=== PATIENT | male | born 1960 | race African-American/Black ===

== ENCOUNTER 2019-08-10 05:34 | Emergency (ER) | payer OTHER ==
[~2019-08-10] VITALS: Ht 200.7 cm; Wt 127.0 kg
[~2019-08-10 05:34] MED LIST: ASPIR 8181 MG PO; CATAPRES0.2 MG PO; DILAUDID4 MG PO; DOLOPHINE HCL10 MG PO; DULOXETINE HCL60 MG PO; FLOMAX0.4 MG; FLONASE 0.05%50 MCG NASAL; FLOVENT HFA 1110 MCG; GLUCOPHAGE1000 MG; GLYBURIDE 2.52.5 MG PO; KEFLEX500 MG PO; LIPITOR10 MG; LIPITOR40 MG PO; MEDROLDOSEPACK PO; NORCO 5-325 TA1 EACH PO; OXYCODONE HCL 55 MG PO; PRINIVIL20 MG PO; TRAMADOL 50 MG50 MG PO
[2019-08-10 06:21] LABS: ABSOLUTE NEUTROPHILS 4.4 thou/uL (1.4-8.2); BASOPHILS 1.1 % (0.0-2.0); HEMOGLOBIN 13.3 gm/dL (14.0-18.0); LYMPHOCYTES 29.4 % (24.0-44.0); MCH 28.5 pg (26.0-34.0); MCHC 33.4 g/dL (28.0-37.0); MCV 85.6 fL (80.0-100.0); MONOCYTES 8.3 % (1.0-8.0); PLATELET COUNT 223 thou/uL (150-400); POLYS 60.2 % (36.0-66.0); RBC 4.67 mil/uL (4.50-6.00); RDW 15.1 % (10.5-14.5); WBC 7.3 thou/uL (4.0-11.0)
[2019-08-10 06:28] LABS: ANION GAP 9 mmol/L (7-16); BUN 16 mg/dL (7-18); CALCIUM 8.8 mg/dL (8.5-10.1); CHLORIDE 104 mmol/L (98-107); CO2 26 mmol/L (21-32); CREATININE 1.5 mg/dL (0.7-1.3); GLUCOSE 116 mg/dL (74-106); POTASSIUM 3.5 mmol/L (3.5-5.1); SODIUM 139 mmol/L (136-145)
[2019-08-10 06:30] LABS: ALBUMIN 3.5 g/dL (3.4-5.0)
[2019-08-10 06:45] LABS: SGOT 23 U/L (15-37); SGPT 24 U/L (30-65); TOTAL BILIRUBIN 0.3 mg/dL (0.2-1.0); TOTAL PROTEIN 7.6 g/dL (6.4-8.2); TROPONIN-I <0.06 ng/mL (<0.06)
[2019-08-10 07:39] LABS: URINE BILIRUBIN NEGATIVE (Negative); URINE BLOOD NEGATIVE (Negative); URINE CLARITY CLEAR; URINE COLOR YELLOW; URINE GLUCOSE-RANDOM* NEGATIVE (Negative); URINE KETONES NEGATIVE (Negative); URINE LEUKOCYTES-REFLEX NEGATIVE (Negative); URINE NITRITE-REFLEX NEGATIVE (Negative); URINE PROTEIN (DIPSTICK) 1+ (Negative); URINE SPECIFIC GRAVITY >= 1.030 (1.005-1.035)
[2019-08-10 08:00] LABS: BACTERIA-REFLEX 1-9 Few /HPF (None Seen); CASTS None Seen /LPF (None Seen); CRYSTALS None Seen /LPF (None Seen); SQUAMOUS 0-3 Few /LPF (0-3); URINE RBC None Seen /HPF (0-2); URINE WBC-REFLEX None Seen /HPF (0-5)
[2019-08-10 08:10] LABS: AMP/METHAMP Negative (Negative); BARBITURATES Negative (Negative); BENZODIAZEPINES POSITIVE (Negative); COCAINE POSITIVE (Negative); METHADONE Negative (Negative); OPIATES Negative (Negative); PCP Negative (Negative)
[2019-08-10] MEDS ORDERED: ZPAK PO (08:56)
[2019-08-10 10:15] VITALS: BP 138/75
--- NOTE | 2019-08-11 08:04 | EKG ---
[facility] [place] [address] ELECTROCARDIOGRAM REPORT Name: ARMANDO GUTIERREZ Room #: [facility]#: [id number] Admission: 08/10/19 Attend Phys: Discharge: 08/10/19 Date of : 58 Report #: [id number] THIS REPORT FOR: cc: [facility] - Clinic physician unknown [facility] - Clinic physician unknown Jong Call MD [facility] THIS REPORT FOR: //name// [facility] ED Test Date: 2019-08-10 Test Time: 05:50:37 Pat Name: ARMANDO GUTIERREZ Department: Room: Gender: Environmental Engineering Intern: : 1960 Requested By: Dwain Pacheco Order Number: [id number] MD: Jong Call Measurements Intervals [place] Rate: 88 P: 67 OK: 155 QRS: 33 QRSD: 92 T: QT: 347 QTc: 420 Interpretive Statements Sinus rhythm Early R wave progression Nonspecific T wave abnormality Compared to ECG 04/07/1998 19:42:00 No significant change was found Electronically Signed On 08-11-2019 8:04:33 CDT by Jong Call [email or web address] <ELECTRONICALLY SIGNED> By: Jong Call MD, FAC 08/11/19 [id number] [id number] 0550 Jong Call MD, [facility] /EPI
== END 2019-08-10 10:17 | disposition home or self-care (01) ==
LOC: ER 05:34
PROVIDERS: Emergency Medicine
DX: R07.89 Other chest pain (principal); G89.29 Other chronic pain; M54.9 Dorsalgia, unspecified; I10 Essential (primary) hypertension; Z79.899 Other long term (current) drug therapy; Z88.8 Allergy status to other drugs, medicaments and biological substances

== ENCOUNTER 2019-09-03 18:30 | Emergency (ER) | payer OTHER ==
[~2019-09-03] VITALS: Ht 200.7 cm; Wt 127.0 kg
[~2019-09-03 18:30] MED LIST changes: +ZPAK PO
[2019-09-03] MEDS ORDERED: CYCLOBENZAPRINE5 MG PO (20:19)
[2019-09-03] MEDS ORDERED: HYDROCODONE BIT10 MG PO (20:19)
[2019-09-03 21:41] VITALS: BP 121/94
== END 2019-09-03 21:41 | disposition home or self-care (01) ==
LOC: ER 18:30
DX: M54.5 Low back pain (principal); M54.2 Cervicalgia; R42 Dizziness and giddiness; R51 Headache; I10 Essential (primary) hypertension; Z98.890 Other specified postprocedural states; Z79.2 Long term (current) use of antibiotics; Z79.82 Long term (current) use of aspirin; Z79.899 Other long term (current) drug therapy; Z88.8 Allergy status to other drugs, medicaments and biological substances